=== PATIENT | male | born 1970 ===

== ENCOUNTER 2017-07-09 19:01 | Emergency (ER) | payer OTHER ==
[2017-07-09 19:23] VITALS: BP 137/97
== END 2017-07-09 19:23 | disposition other institution (70) ==
LOC: ED 19:01
DX: Z02.89 Encounter for other administrative examinations (principal); S20.211A Contusion of right front wall of thorax, initial encounter; F15.10 Other stimulant abuse, uncomplicated; Y04.8XXA Assault by other bodily force, initial encounter; Y93.89 Activity, other specified; Y99.8 Other external cause status; Y92.89 Other specified places as the place of occurrence of the external cause